=== PATIENT | female | born 1980 | race Caucasian/White ===

== ENCOUNTER → 2017-09-24 | Emergency (ER) | payer OTHER ==
[~2017-09-24] VITALS: Ht 162.6 cm; Wt 56.2 kg
== END | disposition home or self-care (01) ==
LOC: ER 13:53
DX: R10.13 Epigastric pain (principal); K52.89 Other specified noninfective gastroenteritis and colitis; E86.0 Dehydration; K29.60 Other gastritis without bleeding

== ENCOUNTER 2017-09-25 15:20 | Day surgery (SDC) | payer OTHER | END 2017-09-25 17:25 | disposition home or self-care (01) | LOC: AMB-ENDOS 15:20 | DX: R10.13 Epigastric pain (principal) ==